=== PATIENT | female | born 1995 | race Asian ===

== ENCOUNTER → 2022-06-14 | Outpatient (REF) | LOC: M EMP 10:49 | PROVIDERS: ATTEND Family Medicine | DX: Z11.52 Encounter for screening for COVID-19 (principal) ==

== ENCOUNTER → 2023-04-20 | Outpatient (REF) | payer BC | LOC: M LAB REF 19:26 | PROVIDERS: ATTEND Nurse Practitioner Family | DX: R30.0 Dysuria (principal); B37.31 Acute candidiasis of vulva and vagina ==